=== PATIENT | female | born 1985 | race Caucasian/White ===

== ENCOUNTER 2019-05-16 16:15 | Emergency (ER) | payer MEDICAID ==
[~2019-05-16] VITALS: Ht 165.1 cm; Wt 76.0 kg
[2019-05-16 16:24] VITALS: BP 115/63
== END 2019-05-16 19:02 | disposition left against medical advice (07) ==
LOC: ER 16:15
DX: Z53.21 Procedure and treatment not carried out due to patient leaving prior to being seen by health care provider (principal); E03.9 Hypothyroidism, unspecified

== ENCOUNTER 2022-07-23 22:02 | Emergency (ER) | payer MEDICAID ==
[~2022-07-23] VITALS: Ht 162.6 cm; Wt 73.4 kg
[2022-07-23] MEDS ORDERED: P20 MT (22:38)
[2022-07-23] MEDS ORDERED: DIPH25CA83 MT (22:38)
[2022-07-23] MEDS ORDERED: PREDNISONE 20MG TABLET PO ONE (22:45)
[2022-07-23] MEDS ORDERED: DIPHENHYDRAMINE 25MG CAPSULE PO ONE (22:45)
[2022-07-23 23:09] VITALS: BP 104/69
== END 2022-07-23 23:09 | disposition home or self-care (01) ==
LOC: ER 22:02
DX: T78.40XA Allergy, unspecified, initial encounter (principal); X58.XXXA Exposure to other specified factors, initial encounter
CPT/HCPCS: 81025; 99283; J7512; Q0163

== ENCOUNTER 2022-12-28 06:21 | Emergency (ER) | payer MEDICAID ==
[~2022-12-28] VITALS: Ht 165.1 cm; Wt 65.0 kg
[~2022-12-28 06:21] MED LIST: DIPH25CA83 MT; P20 MT
[2022-12-28 06:37] VITALS: O2SAT 99
[2022-12-28 07:05] LABS: BASOPHILS % 0.6 % (0.0-2.0); EOSINOPHILS % 1.5 % (0.0-5.0); HEMATOCRIT. 37.5 % (36.0-48.0); HEMOGLOBIN. 13.1 g/dL (12.0-16.0); LYMPHOCYTES % 25.5 % (20.0-50.0); MEAN CORPUSCULAR HEMOGLOBIN 33.2 pg (28.0-32.0); MEAN CORPUSCULAR HGB CONC 34.8 g/dL (31.0-37.0); MEAN CORPUSCULAR VOLUME 95.3 fL (81.0-99.0); MEAN PLATELET VOLUME 8.3 fl (7.4-10.4); MONOCYTES % 7.3 % (2.0-8.0); NEUTROPHILS % 65.1 % (40.0-76.0); PLATELET 354 x1000/uL (130-400); RED BLOOD CELL COUNT 3.94 mill/uL (4.2-5.4); RED CELL DISTRIBUTION WIDTH 12.9 % (11.6-14.6); WHITE BLOOD COUNT 10.8 x1000/uL (4.5-11.0)
[2022-12-28 07:08] LABS: CLARITY URINE CLEAR (CLEAR); COLOR URINE YELLOW (YELLOW); GLUCOSE URINE NEGATIVE (NEGATIVE); KETONES URINE NEGATIVE (NEGATIVE); LEUKOCYTE ESTERASE URINE NEGATIVE (NEGATIVE); NITRITE URINE NEGATIVE (NEGATIVE); OCCULT BLOOD URINE 1+ (NEGATIVE); PROTEIN URINE NEGATIVE (NEGATIVE); SPECIFIC GRAVITY URINE 1.006 (1.005-1.030); UROBILINOGEN URINE 0.2 E.U./dL (0.2-1.0)
[2022-12-28 07:10] LABS: BACTERIA URINE NONE SEEN; SQUAMOUS EPITHELIAL CELL URINE NONE SEEN /lpf (RARE/1+); WBC URINE NONE SEEN /hpf (0-2); YEAST URINE NONE SEEN
[2022-12-28 07:11] LABS: CHLORIDE 107 mEq/L (98-107); INDEX HEMOLYSI 1 (1-3); INDEX ICTERIC 1 (1-4); INDEX LIPEMIC 1 (1-3); POTASSIUM 3.4 mEq/L (3.5-5.1); SODIUM 138 mEq/L (136-145)
[2022-12-28 07:12] LABS: PARTIAL THROMBOPLASTIN TIME 27.9 sec (23.4-31.0); PROTHROMBIN TIME 10.3 sec (9.6-11.0)
[2022-12-28 07:19] LABS: HCG SCREEN NEGATIVE
[2022-12-28 07:22] LABS: ALANINE AMINOTRANSFERASE 25 IU/L (13-61); ALBUMIN 4.3 g/dL (3.4-5.0); ASPARTATE AMINOTRANSFERASE 15 IU/L (15-37); BILIRUBIN TOTAL 0.7 mg/dL (0.1-1.0); CALCIUM 9.1 mg/dL (8.5-10.1); CARBON DIOXIDE 25 mEq/L (21-32); CREATININE 0.8 mg/dL (0.6-1.3); GLUCOSE 104 mg/dL (70-105); PROTEIN TOTAL 7.8 g/dL (6.0-8.3); UREA NITROGEN BLOOD 9 mg/dL (7-21)
[2022-12-28 08:21] LABS: TROPONIN I HIGH SENSITIVITY < 4 ng/L (<54)
[2022-12-28 09:04] VITALS: BP 127/78; PULSE 85; RESP 19; TEMP 98.2
== END 2022-12-28 09:06 | disposition home or self-care (01) ==
LOC: ER 06:21
DX: R07.89 Other chest pain (principal); Z86.39 Personal history of other endocrine, nutritional and metabolic disease
CPT/HCPCS: 36415; 71045; 80053; 81003; 84484; 84703; 85025; 93005; 99285